=== PATIENT | female | born 1940 | race Caucasian/White ===

== ENCOUNTER → 2018-02-25 | Day surgery (SDC) | payer OTHER ==
[~2018-02-25] MED LIST: KEFLEX500 MG PO; LEVO-T50 MCG PO; LOSARTAN-HCTZ1 EAC2 PO; LUMIGAN2.5 M1 OP; METFORMIN HCL500 MG PO; PERCOCET 5-3251 EACH PO; SIMVASTATIN20 MG PO; [UNRECOGNIZED DRUG - OTHER]
== END | disposition home or self-care (01) ==
LOC: ADM 02-20 11:45 → CIR.AMB 02-23 09:45
DX: R15.9 Full incontinence of feces (principal)
CPT/HCPCS: 64581; C1778

== ENCOUNTER 2018-03-11 09:10 | Day surgery (SDC) | payer OTHER ==
[2018-03-11] MEDS ORDERED: ULTRACET PO (09:32)
== END 2018-03-11 11:45 | disposition home or self-care (01) ==
LOC: CIR.AMB 09:10
DX: R15.9 Full incontinence of feces (principal)
CPT/HCPCS: 64590; C1767

== ENCOUNTER 2019-11-18 06:30 | Day surgery (SDC) | payer OTHER ==
[~2019-11-18 06:30] MED LIST changes: +ULTRACET PO
== END 2019-11-18 09:57 | disposition home or self-care (01) ==
LOC: AMB-ENDOS 06:30
PROVIDERS: ATTEND Surgery
DX: D12.8 Benign neoplasm of rectum (principal); Z20.828 Contact with and (suspected) exposure to other viral communicable diseases

== ENCOUNTER 2024-04-14 06:00 | Day surgery (SDC) | payer OTHER ==
[2024-04-06 11:37] VITALS: BP 133/80
[~2024-04-14] VITALS: Ht 154.9 cm; Wt 62.6 kg
[~2024-04-14 06:00] MED LIST changes: +ATACAND HCT 321 EAC1 PO; +FARXIGA10 MG PO; +GLIPIZIDE XL5 MG PO
[2024-04-14] MEDS ORDERED: CEFAZOLIN SODIUM 1,000 MG VIAL ONE (08:59)
[2024-04-14] MEDS ORDERED: BUPIVACAINE HCL/Mpf 0.5% 10ML VIAL ONE (09:49)
[2024-04-14] MEDS ORDERED: LIDOCAINE HCL 1%/EPINEPHRINE 20ML VIAL IJ ONE (09:49)
[2024-04-14] MEDS ORDERED: POVIDONE-IODINE 118 ML BOTT TOP ONE (10:13)
[2024-04-14] MEDS ORDERED: CELECOXIB200 MG PO (12:24)
[2024-04-14] MEDS ORDERED: NEURONTIN300 MG PO (12:24)
== END 2024-04-14 13:35 | disposition home or self-care (01) ==
LOC: CIR.AMB 06:00
PROVIDERS: ATTEND Surgery
DX: R15.9 Full incontinence of feces (principal); D12.3 Benign neoplasm of transverse colon; I10 Essential (primary) hypertension; E78.5 Hyperlipidemia, unspecified
CPT/HCPCS: 64581; 64590; 95972; C1767; C1778